=== PATIENT | female | born 1995 | race African-American/Black ===

== ENCOUNTER 2018-12-07 10:17 | Inpatient (IN) ==
[2018-12-07] MEDS ORDERED: MEPERIDINE 50 MG/1 ML VIAL IV PRN (10:41)
[2018-12-07] MEDS: LACTATED RINGERS 1,000 ML IV SCH ×2 (10:50→19:07)
[2018-12-07 11:08] LABS: Basophils % 0.2 % (0.0-0.8); Eosinophils # 0.1 10*3/uL (0.0-0.87); Eosinophils % 0.8 % (0.00-10.9); Hematocrit 34.6 VOL% (35.7-47.0); Hemoglobin 11.7 GM/DL (12.0-16.0); Immature Granulocytes % 0.4 %; Immature Granulocytes Absolute 0.03 #; Lymphocytes # 1.9 10*3/uL (1.4-4.0); Lymphocytes % 22.5 % (21.3-54.2); Mean Corpuscular HGB Conc 33.8 GM/DL (32-36); Mean Corpuscular Volume 91.1 FL (87-102); Mean Platelet Volume 12.3 FL (9.6-12.0); Monocytes % 8.4 % (1.7-12.7); Neutrophils % 67.7 % (38.7-73.9); Platelet Count 141 T/CUMM (130-400); Red Cell Distribution Width 13.9 % (9.3-17.3); White Blood Count 8.3 T/CUMM (4-12)
[2018-12-07 11:23] LABS: Apearance,Urine CLEAR (Clear); Bilirubin,Urine Negative (Negative); Blood, Urine Negative (Negative); Glucose,Urine (UA) Negative (Negative); Ketones,Urine 5 mg/dL (Negative); Mucus,Urine Occasional /LPF (Occasional); Nitrite,Urine Negative (Negative); Protein,Urine Negative; RBC,Urine 1 /HPF (0-4); Squamous Epithelial Cell,Urine Occasional /HPF (0-10); Urine Color Yellow (Yellow); Urine Specific Gravity 1.012 (1.001-1.035); Urine Urobilinogen < 2.0 EU/DL (0.2-1.0); WBC,Urine <1 /HPF (0-6)
[2018-12-07 11:26] LABS: Albumin 2.7 G/DL (3.4-5.0); Bilirubin,Total 0.4 MG/DL (0.2-1.0); Osmolality,Calculated 270.7 MOS/KG (273-304); Total Protein 6.1 G/DL (6.4-8.3)
[2018-12-07] MEDS: ONDANSETRON 4 MG/2 ML VIAL IV PRN ×2 (11:28→21:54)
[2018-12-07] MEDS: MEPERIDINE 25 MG/1 ML VIAL IV PRN ×2 (11:39→21:54)
[2018-12-07] MEDS ORDERED: ACETAMINOPHEN 325 MG TABLET PO PRN (19:07)
[2018-12-07] MEDS ORDERED: LACTATED RINGERS 1,000 ML IV ONE (19:08)
[2018-12-07] MEDS: LABETALOL 100 MG TABLET PO SCH (21:35)
[2018-12-08] MEDS: OXYTOCIN/LR 20 UNIT/1,000 ML BAG IV SCH ×2 (04:15→18:46)
[2018-12-08] MEDS: ONDANSETRON 4 MG/2 ML VIAL IV PRN ×3 (05:25→16:52)
[2018-12-08] MEDS ORDERED: diphenhydrAMINE 50 MG/1 ML VIAL IV PRN (08:00)
[2018-12-08] MEDS ORDERED: PROMETHAZINE 25 MG/1 ML VIAL IM PRN (08:00)
[2018-12-08] MEDS ORDERED: hydrOXYzine HCL 25 MG/1 ML VIAL IM PRN (08:00)
[2018-12-08] MEDS ORDERED: ePHEDrine 50 MG/ML AMP IV PRN (08:00)
[2018-12-08] MEDS ORDERED: FAMOTIDINE 20 MG/2 ML VIAL IV ONE (08:00)
[2018-12-08] MEDS ORDERED: NALOXONE 0.4 MG/ML VIAL IV PRN (08:00)
[2018-12-08] MEDS ORDERED: CITRIC ACID/SODIUM CITRATE 30 ML UDCUP PO ONE (08:00)
[2018-12-08] MEDS ORDERED: fentaNYL 2 MCG/ROPIV 0.2% EPID 100 ML EPIDURAL SCH (08:00)
[2018-12-08] MEDS ORDERED: CITRIC ACID/SODIUM CITRATE 30 ML UDCUP ONE (08:26)
[2018-12-08] MEDS ORDERED: METHYLERGONOVINE 0.2 MG/1 ML AMP ONE (08:27)
[2018-12-08] MEDS ORDERED: ePHEDrine 50 MG/ML AMP ONE (08:27)
[2018-12-08 08:49] LABS: INR 0.9; PT Patient Result 9.3 SECS; Partial Thromboplastin Time 25.8 SECS (0-40)
[2018-12-08] MEDS ORDERED: fentaNYL 2 MCG/ROPIV 0.2% EPID 100 ML EPIDURAL ONE (08:50)
[2018-12-08] MEDS: LACTATED RINGERS 1,000 ML IV SCH (08:52)
[2018-12-08] MEDS: LABETALOL 100 MG TABLET PO SCH (10:07)
[2018-12-08 10:41] LABS: Apearance,Urine Clear (Clear); Urine Color Yellow (Yellow)
[2018-12-08 10:42] LABS: Bilirubin,Urine Negative (Negative); Blood, Urine Negative (Negative); Glucose,Urine (UA) Negative (Negative); Ketones,Urine 3+ mg/dL (Negative); Nitrite,Urine Negative (Negative); Protein,Urine Negative; RBC,Urine Rare /HPF (0-4); Squamous Epithelial Cell,Urine Few /HPF (0-10); Urine Urobilinogen < 2.0 EU/DL (0.2-1.0)
[2018-12-08 10:43] LABS: Bacteria,Urine Few /HPF (Few); Renal Epithelial Cells,Urine Rare /HPF (<1)
[2018-12-08] MEDS ORDERED: LIDOCAINE 1% 50 ML VIAL ONE (15:38)
[2018-12-08] MEDS ORDERED: miSOPROStol 200 MCG TABLET ONE (15:39)
[2018-12-08 18:02] LABS: Cord Venous Blood PCO2 59.5 MMHG; Cord Venous Blood PO2 20.2
[2018-12-08 18:03] LABS: Cord Venous Blood HCO3 13.4 MMOL/L
[2018-12-08] MEDS ORDERED: WITCH HAZEL PADS 100/JAR TOP PRN (18:06)
[2018-12-08] MEDS ORDERED: BENZOCAINE 20%/MENTHOL 0.5% SPRAY 56 GM CAN TOP PRN (18:06)
[2018-12-08] MEDS ORDERED: BISACODYL 10 MG SUPP RECTAL PRN (18:06)
[2018-12-08] MEDS ORDERED: LANOLIN 50% CREAM 0.3 OZ TUBE TOP PRN (18:06)
[2018-12-08] MEDS ORDERED: ACETAMINOPHEN/CODEINE 300-30 MG TABLET PO PRN (18:06)
[2018-12-08] MEDS ORDERED: oxyCODONE/ACETAMINOPHEN 5-325 MG TABLET PO PRN (18:06)
[2018-12-08] MEDS ORDERED: RHO(D) IMMUNE GLOBULIN 300 MCG SYRINGE IM ONE (18:06)
[2018-12-08] MEDS ORDERED: DIPH/TET/ACEL PERT BOOSTER VACCINE 0.5 ML VIAL IM ONE (18:06)
[2018-12-08] MEDS ORDERED: HYDROCORTISONE 2.5% RECTAL CREAM 30 GM TUBE TOP PRN (18:06)
[2018-12-08] MEDS ORDERED: ACETAMINOPHEN 325 MG TABLET PO PRN (18:06)
[2018-12-08] MEDS ORDERED: MEASLES/MUMPS/RUBELLA VACCINE 0.5 ML VIAL SUBCUT ONE (18:06)
[2018-12-08] MEDS: IBUPROFEN 800 MG TABLET PO PRN (18:20)
[2018-12-08] MEDS ORDERED: OXYTOCIN/LR 20 UNIT/1,000 ML BAG IV ONE (18:44)
[2018-12-08] MEDS: oxyCODONE/ACETAMINOPHEN 5-325 MG TABLET PO PRN (19:59)
[2018-12-08] MEDS: DOCUSATE SODIUM 100 MG CAPSULE PO SCH (21:20)
[2018-12-09 06:06] LABS: Basophils % 0.2 % (0.0-0.8); Eosinophils # 0.1 10*3/uL (0.0-0.87); Eosinophils % 0.9 % (0.00-10.9); Hematocrit 33.6 VOL% (35.7-47.0); Hemoglobin 11.4 GM/DL (12.0-16.0); Immature Granulocytes % 0.6 %; Immature Granulocytes Absolute 0.07 #; Lymphocytes # 2.4 10*3/uL (1.4-4.0); Lymphocytes % 19.5 % (21.3-54.2); Mean Corpuscular HGB Conc 33.9 GM/DL (32-36); Mean Corpuscular Volume 91.1 FL (87-102); Mean Platelet Volume 12.2 FL (9.6-12.0); Monocytes % 9.7 % (1.7-12.7); Neutrophils % 69.1 % (38.7-73.9); Platelet Count 119 T/CUMM (130-400); Red Blood Count 3.69 MC/CUMM (3.8-5.5); Red Cell Distribution Width 13.8 % (9.3-17.3); White Blood Count 12.5 T/CUMM (4-12)
[2018-12-09] MEDS: IBUPROFEN 800 MG TABLET PO PRN ×2 (08:02→18:19)
[2018-12-09] MEDS: DOCUSATE SODIUM 100 MG CAPSULE PO SCH ×2 (09:37→20:38)
[2018-12-10 07:51] VITALS: BP 131/68
[2018-12-10] MEDS: DOCUSATE SODIUM 100 MG CAPSULE PO SCH (08:36)
[2018-12-10] MEDS: IBUPROFEN 800 MG TABLET PO PRN (09:49)
[2018-12-10] MEDS: oxyCODONE/ACETAMINOPHEN 5-325 MG TABLET PO PRN (09:51)
== END 2018-12-10 11:30 | disposition home or self-care (01) | DRG 807 ==
LOC: N.LDOUT 10:17 → N.LD 10:20 → N.OB 12-09 14:03
PROVIDERS: ADMIT Obstetrics & Gynecology; ATTEND Obstetrics & Gynecology